=== PATIENT | female | born 1980 | race Caucasian/White ===

== ENCOUNTER 2017-03-09 01:33 | Emergency (ER) | payer OTHER ==
[~2017-03-09] VITALS: Ht 147.3 cm; Wt 47.7 kg
[~2017-03-09 01:33] MED LIST: CALC-27 PO; FLUD0.1T PO; HYDR5TAB2 PO; LEVO50TA6 PO; ONDA8TAB10 PO
[2017-03-09 01:35] VITALS: BP 101/75; PULSE 75; RESP 18; O2SAT 99
[2017-03-09] MEDS ORDERED: 0.9% Sodium Chloride 1,000 ML IV ONE (01:59)
--- NOTE | 2017-03-09 01:59 | ED.REPORT ---
HPI-General Illness Date of Service Mar 09, 2017 ED Provider: Marlo Rodriguez DO Patient is a 36 year old with a history of hypertension and Boston's disease who presents to the ED complaining of a headache. Associated symptoms include nausea, diarrhea and a non productive cough that she has had for the past 2 days. She denies neck stiffness, dysuria or swelling. Patient states that she was having an Boston Crisis and she took more than her normal dose of medication but it was not helping. Nursing Notes Stated Complaint: VOMITING/HEADACHE Chief Complaint: General Complaint Nursing Notes Reviewed: Yes Allergies: Coded Allergies: No Known Allergies (Verified Allergy, Unknown, 03/09/17) Scheduled Calcium & Magnesium Carbonate (Antacid Gelatin Caplet) 1 Each Tablet 1 EACH PO BID Fludrocortisone Acetate (Fludrocortisone Acetate) 0.1 Mg Tablet 0.1 MG PO BID Hydrocortisone (Hydrocortisone) 5 Mg Tablet 10 MG PO MORNING Hydrocortisone (Hydrocortisone) 5 Mg Tablet 10 MG PO HS Hydrocortisone (Hydrocortisone) 5 Mg Tablet 5 MG PO DAILYWL Levothyroxine (Levothyroxine) 50 Mcg Tablet 50 MCG PO DAILY Scheduled PRN Ondansetron ODT (Ondansetron ODT) 8 Mg Tab.rapdis 4-8 MG PO QID PRN PRN For Nausea Ondansetron ODT (Ondansetron ODT) 8 Mg Tab.rapdis 4-8 MG PO QID PRN PRN For Nausea General Time Seen by MD: 01:58 Chief Complaint Headache Hx Obtained From: Patient Arrived By: Walk-in Symptom Duration: Since onset Location: : Head Severity: Current: Moderate Recent Healthcare: No recent doctor visit, No recent hospitalization Past Medical History Past Medical History hypothyroidism Boston's disease Reports: Hypertension Smoking History Never Smoker Ambulatory Status Independent Review of Systems Full Review of Systems Constitutional: Denies: Chills, Fever Respiratory: Reports: Non-productive cough, Denies: Shortness of breath, Wheezing GI: Reports: Diarrhea, Nausea, Vomiting Musculoskeletal: Denies: Extremity swelling, Neck pain Skin: Denies Itching, Denies Rash, Denies Swelling Neurologic: Reports: Headache Complete sys rev & neg: except as marked. Physical Exam Vital Signs Vital Signs Date Time Temp Pulse Resp B/P Pulse Ox O2 Delivery O2 Flow Rate FiO2 03/09/17 05:44 36.4 76 14 112/68 99 Room Air 03/09/17 03:21 71 14 97/66 98 Room Air 03/09/17 01:35 36.4 75 18 101/75 99 Room Air Initial VS: Reviewed General/Constitutional: Awake, Alert, No acute distress Head / Eyes: Atraumatic, Normocephalic, PERRL, EOMI Neck: Atraumatic, Supple, No meningismus, Full range of motion Respiratory / Chest: Atraumatic, Breath sounds NL, Breath sounds = bilat, No respiratory distress Cardiovascular: Heart rate NL, Regular rhythm, Heart sounds NL Abdomen: Atraumatic, Soft, Non-tender Skin: Atraumatic, No rash, Warm, Dry Neurologic: Oriented X3, Speech NL, No motor deficits, No sensory deficits Psychiatric: Affect NL, Mood NL Interpretation & Diagnostics Lab Results Interpretation Result Diagram: 03/09/17 0210 03/09/17 0210 Test 03/09/17 02:10 03/09/17 02:15 White Blood Count 12.9th/mm3 (3.8-10.1) Red Blood Count 4.91mil/mm3 (3.90-5.20) Hemoglobin 14.8g/dL (12.0-15.6) Hematocrit 42.2% (35.0-46.0) Mean Corpuscular Volume 85.9fL (81-100) Mean Corpuscular Hemoglobin 30.1pg (27.0-35.0) Mean Corpuscular Hemoglobin Concent 35.1% (32.0-37.0) Red Cell Distribution Width 12.3% (12.3-15.4) Platelet Count 266bil/L (150-400) Neutrophils (%) (Auto) 78.6% (40-74) Lymphocytes (%) (Auto) 13.2% (14-46) Monocytes (%) (Auto) 7.3% (4-12) Eosinophils (%) (Auto) 0.5% (0-5) Basophils (%) (Auto) 0.3% (0-3) Sodium Level 137mEq/L (134-144) Potassium Level 4.1mEq/L (3.5-5.2) Chloride Level 98mEq/L (97-108) Carbon Dioxide Level 25mmol/L (18-29) Blood Urea Nitrogen 8mg/dL (6-20) Creatinine 0.49mg/dL (0.57-1.00) Estimat Glomerular Filtration Rate 205mL/min (>59) Glucose Level 103mg/dL (60-99) Lactic Acid Level 1.3mmol/L (0.4-2.0) Calcium Level 9.4mg/dL (8.5-10.1) Magnesium Level 1.9mg/dL (1.6-2.6) Total Bilirubin 0.4mg/dL (0.0-1.2) Aspartate Amino Transf (AST/SGOT) 25U/L (0-50) Alanine Aminotransferase (ALT/SGPT) 17U/L (0-32) Alkaline Phosphatase 63U/L (25-150) Total Protein 7.8g/dL (6.4-8.4) Albumin 4.2g/dL (3.4-5.0) Lipase 49U/L (13-60) Urine Color Yellow (YELLOW) Urine Appearance Clear (CLEAR,HAZY) Urine pH 8.5 (5.0-8.0) Urine Specific [place] 1.015 (1.003-1.035) Urine Protein Tracemg/dL (NEG,TRACE) Urine Glucose (UA) Negativemg/dL (NEGATIVE) Urine Ketones 15mg/dL (NEGATIVE) Urine Occult Blood Moderate (NEGATIVE) Urine Nitrite Negative (NEGATIVE) Urine Bilirubin Negative (NEGATIVE) Urine Urobilinogen Normalmg/dL (NORMAL) Urine Leukocyte Esterase Negative (NEGATIVE) Urine RBC >50/hpf (0-2) Urine WBC 0-5/hpf (0-5) Urine Epithelial Cells Few/hpf (NONE-MOD) Urine Crystals None seen (NONE SEEN) Urine Bacteria Few/hpf (NONE-FEW) Urine Hyaline Casts None/lpf (NONE) Urine Granular Casts None seen (NONE SEEN) Urine Waxy Casts None seen (NONE SEEN) Urine Red Blood Cell Casts None seen (NONE SEEN) Urine White Blood Cell Casts None seen (NONE SEEN) Urine Mucus Present (None Seen) Urine Trichomonas None seen (NONE SEEN) Urine Yeast None (NONE SEEN) Urinalysis Comment None Urine Culture Reflexed Not indicated ECG Interpretation ECG Interpretation: low voltage Time: 02:12 Normal ECG Interpretation: Normal rate (64), Normal sinus rhythm Re-Eval/Medical Decision Med Decision/Clinical Course 36-year-old female who was originally seen and evaluated by Dr. Rodriguez. She appears to be in [place] crisis secondary to nausea and vomiting. She was rehydrated and given her hydrocortisone IV. She feels much better and will be discharged home with a prescription for ondansetron which has worked for her in the past. She will resume her present hydrocortisone dose. She will follow-up with her chip tuner as needed or return to the emergency room if she worsens significantly again. Her hematuria is not completely explained. She is somewhat immunosuppressed because of her disease so we will treat a UTI empirically and I ordered culture regardless for the urine. Time of Eval: 02:40 Patient Status: Condition improved Re-Evaluation/Progress Note: Patient reports that she is feeling better. Counseled Regarding: Diagnosis, Lab results, Need for follow-up, When/why to return to ED Discharge & Departure Shift Change Sign-Out Patient Care Transferred: Yes Discussed Complaint(s): Yes Primary Impression: Boston disease Additional Impression: Hematuria Disposition: Home Discharge Condition All VS Reviewed: Yes Condition: Stable Patient Instructions: [place] Disease (ED) Additional Instructions: Resume your regular medications. Zofran 8 mg ODT, one half to one tablet 4 times a day as needed for nausea and vomiting, #20 prescribed. Cephalexin 500 mg by mouth 4 times a day, #40 dispensed. Drink plenty of fluids. Follow-up with your regular doctor as soon as possible. If you have any further problems , return to the emergency room.. Referrals: Víctor Chowdhury MD (PCP) Care Transferred to: Dr. Tate Care Transferred at: 03:11 Remi Attestation Portions of this note were transcribed by Marilia Vazquez. I, Dr. Rodriguez personally performed the history, physical exam and medical decision-making; I reviewed and confirmed the accuracy of the information in the transcribed note. Signed by: Remi Kendall, 03/09/17 and 0300 copies to: Víctor Chowdhury MD, Todd P DO Mar 09, 2017 01:59 Greta Vazquez Mar 09, 2017 02:16 Raúl Tate MD Mar 09, 2017 05:37
[2017-03-09] MEDS ORDERED: Ondansetron 2 mg/mL 2 mL Inj IVPUSH PRN (02:00)
[2017-03-09] MEDS ORDERED: Hydrocortisone 50 mg/mL 2 mL Inj IVPUSH ONE (02:00)
[2017-03-09 02:18] LABS: BASOPHILS % (AUTO) 0.3 % (0-3); EOSINOPHILS % (AUTO) 0.5 % (0-5); MONOCYTES % (AUTO) 7.3 % (4-12); Mean Corpuscular Hemoglobin 30.1 pg (27.0-35.0); Mean Corpuscular Volume 85.9 fL (81-100); NEUTROPHILS % (AUTO) 78.6 % (40-74); Platelet Count 266 bil/L (150-400)
[2017-03-09 02:44] LABS: Magnesium 1.9 mg/dL (1.6-2.6)
[2017-03-09 02:53] LABS: APPEARANCE,URINE CLEAR (CLEAR,HAZY); COLOR,URINE YELLOW (YELLOW); OCCULT BLOOD,URINE MODERATE (NEGATIVE); PH,URINE 8.5 (5.0-8.0); UROBILINOGEN,URINE NORMAL (NORMAL)
[2017-03-09 03:21] VITALS: BP 97/66; PULSE 71; RESP 14; O2SAT 98
[2017-03-09] MEDS ORDERED: ONDA8TAB10 PO (05:39)
[2017-03-09 05:44] VITALS: BP 112/68; PULSE 76; RESP 14; O2SAT 99
[2017-03-09] MEDS ORDERED: _Cephalexin Suspension 250 mg/5 mL PO SCH (06:30)
--- NOTE | 2017-03-09 09:08 | DRSVH ---
PROCEDURE: X-RAY CHEST, TWO VIEWS ([id number]) INDICATIONS: cough, TECHNIQUE: 2 views of the chest were acquired. COMPARISON: None. FINDINGS: Surgical changes and devices: None. Lungs and pleura: No pleural effusions or pneumothorax. Lungs are clear. Mediastinum: Mediastinal contours are normal. Heart size is normal. Bones and chest wall: No suspicious bony abnormalities. Soft tissues appear unremarkable. IMPRESSION: Normal for age. Dictated by: Kwaku Spaulding M.D. on 03/09/2017 at 9:07 Approved by: Kwaku Spaulding M.D. on 03/09/2017 at 9:07
== END 2017-03-09 05:45 | disposition home or self-care (01) ==
LOC: SED 01:33
DX: E27.1 Primary adrenocortical insufficiency (principal); R31.9 Hematuria, unspecified; R51 Headache; R11.0 Nausea; R05 Cough; R19.7 Diarrhea, unspecified; I10 Essential (primary) hypertension; E03.9 Hypothyroidism, unspecified
CPT/HCPCS: 36415; 71020; 80053; 81000; 81025; 83605; 83690; 83735; 85025; 87086; 93005; 96361; 96374; 96375; 99285; J1720; J2405; J7030